=== PATIENT | female | born 1935 | race Caucasian/White ===

== ENCOUNTER 2022-01-16 13:59 | Outpatient (CLI) | payer MEDICARE, SELFPAY ==
--- NOTE | ~2022-01-16 | XR_ITS ---
XR hip RT 2V w AP pelvis DATE: 01/16/2022 14:21 INDICATION: Right hip pain TECHNIQUE: AP pelvis. AP and lateral views of right hip. COMPARISON: 03/05/2018 MRI right hip 01/28/2018 pelvis and right hip FINDINGS: Again noted is extensive calcification of the abdominal aorta, iliac and femoral arteries. Osteopenia. Again noted is levoscoliosis and degenerative disc disease of the lumbar spine. The pubic symphysis and sacroiliac joints are intact. No pelvic fracture or bone destruction is evident. Hip joint spaces are symmetric and relatively preserved. There is mild osteophytic spurring at the ri ght hip. No right hip fracture or dislocation, avascular necrosis or bone destruction is detected. IMPRESSION: Mild right hip osteoarthritis Osteopenia. Reviewed, dictated and finalized at location A.
== END 2022-01-16 14:00 | disposition home or self-care (01) ==
PROVIDERS: PCP Family Medicine; Visit Provider Physician Assistant Medical
DX: M25.551 Pain in right hip (principal); M16.11 Unilateral primary osteoarthritis, right hip; M85.89 Other specified disorders of bone density and structure, multiple sites
CPT/HCPCS: 73502

== ENCOUNTER → 2022-11-22 14:02 | Outpatient (CLI) | payer MEDICARE, SELFPAY ==
--- NOTE | ~2022-11-22 | XR_ITS ---
XR shoulder LT min 2V DATE: 11/22/2022 14:29 INDICATION: Pain, limited range of motion. No injury. TECHNIQUE: 4 views of left shoulder COMPARISON: 03/01/2018 left shoulder FINDINGS: There is osteopenia. Bilateral cervical and upper thoracic pedicle screws and rods There is levoscoliosis of the upper thoracic spine. No fracture or dislocation, periosteal reaction or bone destruction is noted at the left shoulder. Th ere is mild degenerative change at the zak clavicular and glenohumeral joints. IMPRESSION: Status post posterior cervicothoracic spinal surgical fusion Osteopenia No fracture or dislocation of the left shoulder Mild degenerative change at the acromioclavicular and glenohumeral joints Reviewed, dictated and finalized at location L.
== END ==
PROVIDERS: PCP Family Medicine; Visit Provider Family Medicine
DX: M85.812 Other specified disorders of bone density and structure, left shoulder (principal); M19.012 Primary osteoarthritis, left shoulder
CPT/HCPCS: 73030

== ENCOUNTER 2023-12-02 16:51 | Emergency (ER) | payer MEDICARE, SELFPAY ==
[2023-12-02 17:29] VITALS: BP 127/54; PULSE 92; RESP 20; TEMP 36.6; O2SAT 95
--- NOTE | 2023-12-02 21:21 | ED.GENADULT ---
HPI - General Adult General Chief complaint: Skin/Abscess/Foreign Body Stated complaint: itching Time Seen by Provider: 12/02/23 19:58 History of Present Illness HPI narrative: 87-year-old female present to the emergency department for evaluation for allergic reaction. Patient did restart taking her metformin and a sleep medication called [facility] sleep. Patient has taken the metformin previously and has had no issues with allergic reactions. Patient has never taken the sleep aid before. Patient started both these medications approximately 1 week ago. Patient did follow-up with primary care physician was started on hydroxy which he states has not been helping with her symptoms. Patient presents the ED with multiple areas of excoriation secondary to her scratching the itching. Related Data Home Medications Medication Instructions Recorded Confirmed albuterol sulfate 90 mcg/actuation 2 puff inhalation Q4-6H PRN 06/15/19 11/25/23 aerosol inhaler (ProAir HFA) ferrous fumarate 325 mg (106 mg 325 mg PO DAILY 09/14/19 11/25/23 iron) tablet acetaminophen 500 mg tablet 500 mg PO Q6H 07/06/21 11/25/23 (Tylenol Extra Strength) biotin 1 mg tablet 1 mg PO DAILY 07/06/21 11/25/23 blood sugar diagnostic (OneTouch 07/06/21 11/25/23 Verio test strips) cinnamon bark 500 mg capsule 1,000 mg PO DAILY 07/06/21 11/25/23 (Cinnamon) garlic 1,000 mg capsule 1,000 mg PO DAILY 07/06/21 11/25/23 multivitamin 1 tablet PO DAILY 07/06/21 11/25/23 omega-3 fatty acids 500 mg capsule 500 mg PO DAILY 07/06/21 11/25/23 Allergies Allergy/AdvReac Type Severity Reaction Status Date / Time lorazepam Allergy Severe confusion, Verified 12/02/23 17:35 ams hydrocodone Allergy Unknown Nausea Verified 12/02/23 17:35 Opioids - Morphine Analogues Allergy Unknown Nausea Verified 12/02/23 17:35 Sulfa (Sulfonamide Allergy Unknown Rash Verified 12/02/23 17:35 Antibiotics) sulfanilamide Allergy Unknown Rash Verified 12/02/23 17:35 Review of Systems Review of Systems: All systems reviewed & are unremarkable except as noted in HPI and below PMFSH Past Medical History Medical History BMI 24.0-24.9, adult BMI 26.0-26.9,adult BMI 27.0-27.9,adult Degenerative joint disease of cervical and lumbar spine Insomnia Spinal fracture Tensor fascia suad syndrome Family History Family History Mother Hypertension Family history of elevated blood lipids Family history of diabetes mellitus in first degree relative Patient's mother is Diabetes mellitus Sibling Family history of elevated blood lipids Family history of malignant neoplasm of breast in first degree relative, Onset Age: 201 Family history of pulmonary embolism, Onset Age: 196 Patient's sister is Family history of mental disorder Family history of malignant neoplasm Family history of heart disease in male family member before age 55 Father Family history of coronary artery disease Patient's father is Acute myocardial infarction Other Cerebrovascular accident Depression Family history of cardiovascular disease Social History Social History Smoking status: Former smoker Second hand tobacco smoke exposure: No Alcohol intake: never Substance use: current Substance use type: marijuana Other substance usage details: edibles-for sleep Living arrangements: [facility] [place] Occupation/Education: retired Additional occupation/education comments: [employer] job placement. Gender identity (if verbalized by the patient): Female Exam Narrative: APPEARANCE: Well appearing, no pain, no distress, well-nourished. HEAD: normocephalic, atraumatic. EYES: PERRLA/EOMI, conjunctivae clear. NOSE: Normal no drainage EARS:TMS clear with good light reflex. THROAT
[2023-12-02] MEDS: predniSONE 20 MG TABLET 40 MG PO (21:30)
[2023-12-02] MEDS: diphenhydrAMINE HCl CAP 25 MG CAPSULE PO (21:30)
[2023-12-02 21:36] LABS: Glucose Point of Care 144 mg/dl (65-105)
[2023-12-02 21:40] VITALS: BP 130/80; PULSE 88; RESP 18; TEMP 36.8; O2SAT 99
== END 2023-12-02 21:44 | disposition home or self-care (01) ==
PROVIDERS: Emergency Provider Emergency Medicine; PCP Family Medicine
DX: L50.0 Allergic urticaria (principal); T45.0X5A Adverse effect of antiallergic and antiemetic drugs, initial encounter; E11.9 Type 2 diabetes mellitus without complications; M47.812 Spondylosis without myelopathy or radiculopathy, cervical region; M47.816 Spondylosis without myelopathy or radiculopathy, lumbar region; G47.00 Insomnia, unspecified; Z87.891 Personal history of nicotine dependence; Z79.84 Long term (current) use of oral hypoglycemic drugs
CPT/HCPCS: 82948; 99283; A9270; J7512

== ENCOUNTER 2023-12-08 21:50 | Emergency (ER) | payer MEDICARE, SELFPAY ==
[2023-12-08 21:50] VITALS: BP 152/63; PULSE 83; RESP 20; TEMP 36.9; O2SAT 96
[2023-12-08 21:58] LABS: Glucose Point of Care 333 mg/dl (65-105)
[2023-12-08] MEDS: SODIUM CHLORIDE 0.9% IV 1,000 ML 999 ML IV CONT (22:39)
[2023-12-08 22:44] VITALS: BP 138/52; PULSE 76; RESP 16; O2SAT 98
[2023-12-08 22:52] LABS: Basophils Percent Auto 0.3 % (0.2-1.2); Eosinophils Percent Auto 0.1 % (0-4.4); Hematocrit 37.2 % (37.0-47.0); Hemoglobin 12.4 g/dL (12.0-15.0); Immature Granulocyte Absolute 0.39 K/mm3 (0.00-0.031); Immature Granulocyte Percent A 2.7 % (0-0.5); Lymphocytes Absolute Auto 2.08 K/mm3 (0.9-3.2); Lymphocytes Percent Auto 14.2 % (18.3-44.2); Mean Corpuscular HGB Conc 33.3 g/dl (32-36); Mean Corpuscular Hemoglobin 30.8 pg (26-34); Mean Corpuscular Volume 92.5 fl (80-100); Mean Platelet Volume 9.4 fl (7.4-10.4); Monocytes Absolute Auto 0.9 K/mm3 (0.1-0.6); Monocytes Percent Auto 5.9 % (2.6-8.5); Neutrophils Absolute Auto 11.3 K/mm3 (1.3-6.7); Neutrophils Percent Auto 76.8 % (45.5-73.1); Platelet Count Result 296 k/mm3 (150-375); Red Blood Count 4.02 M/mm3 (4.2-5.4); Red Cell Distribution Width 13.4 % (11.5-14.5); White Blood Count 14.6 K/mm3 (4.5-10.0)
[2023-12-08 23:03] LABS: Alanine Aminotransferase 75 U/L (6-35); Albumin Level 4.5 g/dL (3.5-5.1); Alkaline Phosphatase 285 U/L (38-126); Anion Gap 15 mmol/L (4-12); Aspartate Amino Transferase 28 U/L (14-36); Bilirubin,Total 0.6 mg/dL (0.2-1.3); Blood Urea Nitrogen 47 mg/dL (7-17); Calcium 10.6 mg/dL (8.4-10.2); Carbon Dioxide 22 mmol/L (22-30); Chloride 97 mmol/L (98-107); Estimated CRCL calculation 26 ml/min; Estimated Glomerular Filt Rate 43; Glucose 291 mg/dL (65-110); Lipase 218 U/L (23-300); Magnesium 1.9 mg/dL (1.6-2.3); Potassium 5.4 mmol/L (3.4-5.0); Sodium 134 mmol/L (137-145)
[2023-12-08 23:06] LABS: Beta-Hydroxybutyrate/Acetoacetate 0.22 mmol/L (0.02-0.27)
[2023-12-08 23:07] LABS: Appearance Urine Clear (Clear); Bacteria Urine 4+ /hpf; Bilirubin Urine Negative (Negative); Blood Urine Negative (Negative); Color Urine Yellow (Yellow); Glucose Urine UA 3+ mg/dL (Negative); Ketones Urine Negative (Negative); Leukocyte Esterase Ur 1+ LEU/UL (Negative); Nitrate Urine Positive (Negative); Non Pathogenic Casts 0-2; Protein Urine Negative (Negative); RBC Urine 0-2 /hpf (0-2); Specific Grav Ur 1.026 (1.001-1.035); Squamous Epithelial Cell Urine None Seen /hpf (Few); Urobilinogen Urine 0.2 mg/dL (<2.0); pH Urine 5.5 (5.0-9.0)
[2023-12-08 23:10] LABS: Add Urine Microscopic? YES
[2023-12-09 00:03] LABS: Glucose Point of Care 219 mg/dl (65-105)
--- NOTE | 2023-12-09 00:15 | ED.GENADULT ---
HPI - General Adult General Chief complaint: Recheck/Abnormal Lab/Rx Stated complaint: increased blood sugar Time Seen by Provider: 12/08/23 22:03 History of Present Illness HPI narrative: Patient is a 7-year-old female presents emergency department with chief complaint of hyperglycemia. Patient reports he had allergic reaction the other day was started on prednisone and hydroxyzine the patient reports that today her blood sugars are running elevated patient also reports he has been drinking core smoothie in the morning for breakfast Related Data Home Medications Medication Instructions Recorded Confirmed albuterol sulfate 90 mcg/actuation 2 puff inhalation Q4-6H PRN 06/15/19 12/08/23 aerosol inhaler (ProAir HFA) Shortness Of Breath ferrous fumarate 325 mg (106 mg 325 mg PO DAILY 09/14/19 12/08/23 iron) tablet acetaminophen 500 mg tablet 500 mg PO Q6H 07/06/21 12/08/23 (Tylenol Extra Strength) biotin 1 mg tablet 1 mg PO DAILY 07/06/21 11/25/23 blood sugar diagnostic (OneTouch 07/06/21 12/08/23 Verio test strips) cinnamon bark 500 mg capsule 1,000 mg PO DAILY 07/06/21 11/25/23 (Cinnamon) garlic 1,000 mg capsule 1,000 mg PO DAILY 07/06/21 11/25/23 multivitamin 1 tablet PO DAILY 07/06/21 11/25/23 omega-3 fatty acids 500 mg capsule 500 mg PO DAILY 07/06/21 11/25/23 Allergies Allergy/AdvReac Type Severity Reaction Status Date / Time lorazepam Allergy Severe confusion, Verified 12/08/23 22:06 ams hydrocodone Allergy Unknown Nausea Verified 12/08/23 22:06 Opioids - Morphine Analogues Allergy Unknown Nausea Verified 12/08/23 22:06 Sulfa (Sulfonamide Allergy Unknown Rash Verified 12/08/23 22:06 Antibiotics) sulfanilamide Allergy Unknown Rash Verified 12/08/23 22:06 Review of Systems Review of Systems: A 10 system review of systems was completed on the patient and is negative except for what is stated in the HPI. Nursing and ancillary documentation was reviewed. [facility] Past Medical History Medical History BMI 24.0-24.9, adult BMI 26.0-26.9,adult BMI 27.0-27.9,adult Degenerative joint disease of cervical and lumbar spine Insomnia Spinal fracture Tensor fascia suad syndrome Family History Family History Mother Hypertension Family history of elevated blood lipids Family history of diabetes mellitus in first degree relative Patient's mother is Diabetes mellitus Sibling Family history of elevated blood lipids Family history of malignant neoplasm of breast in first degree relative, Onset Age: 201 Family history of pulmonary embolism, Onset Age: 196 Patient's sister is Family history of mental disorder Family history of malignant neoplasm Family history of heart disease in male family member before age 55 Father Family history of coronary artery disease Patient's father is Acute myocardial infarction Other Cerebrovascular accident Depression Family history of cardiovascular disease Social History Social History Smoking status: Former smoker Second hand tobacco smoke exposure: No Alcohol intake: never Substance use: current Substance use type: marijuana Other substance usage details: edibles-for sleep [place] Occupation/Education: retired Additional occupation/education comments: [employer] job placement. Gender identity (if verbalized by the patient): Female Exam Narrative: GENERAL: Well-appearing, well-nourished, and in no acute distress. HEAD: Normocephalic, atraumatic. EYES: PERRLA and EOMI. ENT: Nares clear, no rhinorrhea or epistaxis. Mucous membranes moist. NECK: Supple. CHEST: Clear to auscultation. No respiratory distress. HEART: Regular rate and rhythm. No murmur heard. Normal perip
[2023-12-09] MEDS: CEPHALEXIN 500 MG CAPSULE PO (00:35)
[2023-12-09 00:44] VITALS: BP 165/60; PULSE 78; RESP 15; O2SAT 98
== END 2023-12-09 00:46 ==
PROVIDERS: Emergency Provider Emergency Medicine; PCP Family Medicine
DX: N39.0 Urinary tract infection, site not specified (principal); E11.65 Type 2 diabetes mellitus with hyperglycemia; M47.816 Spondylosis without myelopathy or radiculopathy, lumbar region; M47.812 Spondylosis without myelopathy or radiculopathy, cervical region; Z87.891 Personal history of nicotine dependence; Z79.84 Long term (current) use of oral hypoglycemic drugs; Z79.899 Other long term (current) drug therapy
CPT/HCPCS: 36415; 80053; 81001; 82010; 82948; 83690; 83735; 85025; 87077; 87086; 87088; 87186; 96360; 96361; 99283; A9270; J7030

== ENCOUNTER 2024-04-09 14:17 | Outpatient (CLI) | payer MEDICARE, SELFPAY ==
--- NOTE | ~2024-04-09 | CT_ITS ---
EXAMINATION: CT shoulder LT wo con DATE: 04/09/2024 14:41 INDICATION: Fracture of unspecified part of scapula, left. TECHNIQUE: Computed tomography (CT) of the left shoulder was performed without intravenous contrast. Automated exposure control and iterative reconstruction technique were employed. The dose-length prod uct was 113.07 mGy-cm. COMPARISON: Left shoulder radiographs 11/22/2022 FINDINGS: Bone alignment is normal. No fracture. There is mild osteoarthritis of glenohumeral joint a nd moderate osteoarthritis of acromioclavicular joint. Subacromial spurring is noted. There is narrow ing of the subacromial space, consistent with rotator cuff tear. There are changes of posterior fusio n procedure in cervical thoracic spine. IMPRESSION: 1. No fracture. 2. Polyarticular osteoarthritis. 3. Rotator cuff tear. Reviewed, dictated and finalized at location A.
== END 2024-04-09 14:18 | disposition home or self-care (01) ==
PROVIDERS: PCP Family Medicine; Visit Provider Nurse Practitioner Family
DX: M19.012 Primary osteoarthritis, left shoulder (principal); M75.102 Unspecified rotator cuff tear or rupture of left shoulder, not specified as traumatic
CPT/HCPCS: 73200

== ENCOUNTER 2024-06-16 09:07 | Outpatient (CLI) | payer MEDICARE, SELFPAY ==
--- NOTE | ~2024-06-16 | US_ITS ---
COMPLETE ABDOMINAL ULTRASOUND Ordering provider: MANA Melton History: . R74.8 - Abnormal levels of other serum enzymes . Comparison: None. FINDINGS: LIVER: Normal size and echotexture. No focal hepatic lesions or perihepatic fluid collections are carlos ntified. Portal vein flow is normal. GALLBLADDER: Cholelithiasis. No evidence for sludge, gallbladder wall thickening or pericholecystic f luid collections. The wall measures 2.8 mm. A negative sonographic Kelsey's sign was noted. BILIARY DUCTS:Common bile duct measures 10 mm in diameter. Stones are seen in the CBD. PANCREAS: Normal echotexture and size. SPLEEN: Normal size, echotexture and contour and measures 8.2 cm in length. KIDNEYS: Right measures 9.2x 5.7x 4.8 cm in length and the left 8.1x 4x 4.2 cm in length. There is no evidence for hydronephrosis, solid renal mass, renal calculi or perinephric fluid collections. Cyst is seen in the left kidney measuring 1.8 x 1.6 x 1.7 cm. UPPER ABDOMINAL AORTA: Normal in caliber. Proximal aorta measures 1.2 cm. IVC: Patent. FREE FLUID: None. IMPRESSION: Cholelithiasis. Dilated CBD with stones. Left renal cyst. Reviewed, dictated and finalized at location A. [employer] WORK[employer]
== END 2024-06-16 09:08 | disposition home or self-care (01) ==
PROVIDERS: PCP Family Medicine; Visit Provider Nurse Practitioner Family
DX: K80.20 Calculus of gallbladder without cholecystitis without obstruction (principal); K83.8 Other specified diseases of biliary tract; K80.50 Calculus of bile duct without cholangitis or cholecystitis without obstruction; N28.1 Cyst of kidney, acquired; R74.8 Abnormal levels of other serum enzymes; R63.4 Abnormal weight loss
CPT/HCPCS: 76700

== ENCOUNTER 2024-09-10 00:20 | Day surgery (SDC) | payer MEDICARE, SELFPAY ==
[2024-09-08 13:43] VITALS: BMI 17.6
[2024-09-10] VITALS (8 sets, daily range): BP systolic 135–191; BP diastolic 43–65; PULSE 61–87; RESP 16–26; TEMP 36.5–36.8; O2SAT 96–100
--- NOTE | ~2024-09-10 | XR_ITS ---
INTRAOPERATIVE FLUOROSCOPY: CLINICAL HISTORY: 88 years old Female; [place] PROCEDURE COMMENTS: Limited intraoperative fluoroscopy of the abdomen was performed. CUMULATIVE DOSE: 19.5 mGy FLUOROSCOPY TIME: 184 seconds FINDINGS/IMPRESSION: Please refer to operative note for further details. Reviewed, dictated and finalized at location A. [employer]
--- OUTSIDE RECORDS SUMMARY | 2024-09-10 00:24 | XMS_ITS | Patient Health Summary ---
Author Organization [facility] [employer] Address [address] [place] [address] Care Team Providers Care Director College Name Role Phone Parker Gerardo Primary Care Provider [phone] Note from [facility],non-owned Affiliates and Associated Physician Practices is amultiple site organization consisting of ambulatory clinics and hospital sitesin [place], [place], [place] and [place]. This disclosure is being madepursuant to the Care Everywhere program and may not contain all information available regarding this patient. Last updated 18.[facility] [employer] Social History Tobacco Use Types Packs/Day Years Used Date Smoking Tobacco: Never Assessed Sex and Gender Information Value Date Recorded Sex Assigned at Not on file Gender Identity Not on file Sexual Orientation Not on file Last Filed Vital Signs Vital Sign Reading Time Taken Comments Blood Pressure 150/60 11/06/2017 12:57 PM CDT Pulse - - Temperature - - Respiratory Rate - - Oxygen Saturation - - Inhaled Oxygen Concentration - - Weight 59.6 kg (131 lb 6.4 oz) 11/06/2017 12:57 PM CDT Height 160 cm (5' 3 ) 11/06/2017 12:57 PM CDT Body Mass Index 23.28 11/06/2017 12:57 PM CDT Procedures * GROSS + MICRO EXAM(Performed 09/12/2000) Results * GROSS + MICRO EXAM (09/12/2000 9:41 AM J2EE ANDROID DEVELOPER) Result CASE NUMBER [id number] Comment: ORDERING PHYSICIAN NATALIIA YEE SPECIMEN TYPE Endometrial Curetti Date 09/12/2000 Physician sony Gross Description 2 specimens are received in formalin, labeled with the patients name. 1-the specimen is identified as `endometrial curettings' and consists of fragments of pink tellez bloody soft tissue fragments measuring in aggregate .5 x .5 x .4 cm. The entire specimen is dotted with hematoxylin submitted in cassette A. 2-the specimen is identified as `cornual lesion' and consists of two small fragments of tellez soft tissue fragments each measuring approximately .2 cm in greatest diameter. The entire specimen is submitted in B. AE/c Microscopic Exam Sections of the specimen labeled endometrial curettings shows multiple strips of benign endometrial and endocervical epithelium. Scattered stromal elements are present in the sections. A small focus of squamous metaplasia is also present. Tissue is insufficient for phase evaluation of the endometrium, but scant tissue such as this is often seen in atrophic endometria. Clinical cporrelation is recommended. No evidence of malignancy is present. Sections of the cornual lesion shows a fragment of polypoid endometrial stromal tissue containing a few atrophic cystically dilated glands consistent with cystic atrophy. No evidence of malignancy is noted in the sections. Ae/ AB Diagnosis I. Endometrial curettings A. Scanty benign endometrial tissue (see microscopic) B. Insufficient for phase evaluation of endometrium II. Cornual lesion, biopsy A. Cystic atrophy B. No evidence of malignancy. Ae/ AB [employer] [facility] [place] Pathologist Felix Hernandez M.D. Snomed. 09/13/2000 1243 <4> CPT code 53128/58812 x2 MISCELLANEOUS SAMPLES / Unknown 09/12/2000 9:41 AM J2EE ANDROID DEVELOPER 09/12/2000 9:41 AM J2EE ANDROID DEVELOPER Historical Provider LAB - PATHOLOGY/C YTOLOGY ORDERABLES Care Teams Director College Relationship Specialty Start Date End Date Parker Gerardo DO PCP - General 01/09/18
--- OUTSIDE RECORDS SUMMARY | 2024-09-10 00:24 | XMS_ITS | Clinical Summary ---
Author Organization [facility] Address [address] [place] [address] Care Team Providers Care Worm Picker Name Role Phone Pasha Barlow MD Primary Care Provider [phone] Allergies Active Allergy Reactions Criticality Noted Date Comments Hydrocodone-Acetaminophen Unknown 12/07/2018 Opioids - Morphine Analogues Unknown 019 Sulfa (Sulfonamide Antibiotics) Medications simvastatin (ZOCOR) 40 mg tablet Take 40 mg by mouth nightly Active metoprolol pugh-hydrochlorot hiaz 25-12.5 mg tablet extended release 24 hr Take by mouth Ac tive busPIRone (BUSPAR) 5 mg tabletIndicatio ns:Generalized Anxiety Disorder Take 5 mg by mouth 3 (three) times a day Active vit D3-vit T-bpxmrbgkj-him s [id number] ojxo-tsg-dg-mg tablet Take by mouth Active fluticasone propion-salmete rol (ADVAIR DISKUS) 100-50 mcg/dose diskus inhaler Inhale 1 puff 2 (two) times a day Rinse mouth with water after use. Do not swallow. Active acetaminophen 500 mg capsuleIndicati ons:Pain Take 2 capsules (1,000 mg total) by mouth every 6 (six) hours 30 tablet 9 Active cholecalciferol (VITAMIN D-3) 400 unit/mL drops Take 2.5 mL (1,000 Units total) by mouth daily 50 mL 9 Active ONETOUCH VERIO strip USE TO TEST BLOOD SUGARS 4 TIMES DAILY 3 9 Active traMADol (ULTRAM) 50 mg tabletIndicatio ns:Pain Take 1/2 tablet BID PRN 60 tablet 9 Active PROAIR HFA 90 mcg/actuation inhaler INHALE 2 PUFFS Q 4 TO 6 HOURS PRN 0 9 Active tiZANidine (ZANAFLEX) 2 mg tablet TK 1 T PO BID PRN AND 1 T AT BEDTIME 5 9 Active traZODone (DESYREL) 150 mg tablet 9 Active metoprolol XL (TOPROL-XL) 50 mg 24 hr tablet TK 1 T PO QD 3 9 Active metFORMIN XR (GLUCOPHAGE XR) 500 mg 24 hr tablet TK 2 TS PO QD WITH THE EVENING MEAL 5 9 Active lisinopril (PRINIVIL,ZESTR IL) 5 mg tablet 9 Active ferrous sulfate 325 mg (65 mg of elemental iron) tablet TK 1 T PO QD 5 9 Active sertraline (ZOLOFT) 100 mg tablet TK 1 T PO QD 9 Active sertraline (ZOLOFT) 50 mg tablet TK 1 T PO D [address] (CYMBALTA) 60 mg capsule TK ONE C PO QD 0 Active PREVIDENT 5000 DRY MOUTH 1.1 % gel USE D UTD 9 Active escitalopram (LEXAPRO) 10 mg tablet TK 1 T PO D 0 Active hydrocortisone 2.5 % cream Apply topically 2 (two) times a day 8 Active Active Problems Problem Noted Date Diagnosed Date Acute pain 12/12/2018 Acute pulmonary insufficiency 12/12/2018 Closed nondisplaced fracture of sixth cervical vertebra ([facility]) 12/08/2018 Closed fracture of spinous p rocess of cervical vertebra ([facility]) 12/08/2018 Closed fracture of spinous p rocess of thoracic vertebra ([facility]) 12/08/2018 Hypertension 12/08/2018 Diabetes 12/08/2018 COPD (chronic obstructive pulmonary disease) 01/2019 Hyponatremia 12/08/2018 Closed fracture of cervical vertebra ([facility]) 0 12/07/2018 Overview (12/08/2018): Added automatically from request for surgery [id number] Sensorineural hearing loss (SNHL) of both ears 1 08/18/2011 Trigeminal neuralgia 07/17/2010 Impacted cerumen 03/30/2010 Immunizations Name Administration Dates Next Due Influenza, Trivalent, High D ose, Split, Preservative Free, Intramuscular 05/14/2018,04/18/2017,04/25/2016,05/02,04/15/2013 Pneumococcal Conjugate PCV 13 04/25/2016 Pneumococcal Polysaccharide PPV23 05/27/2017 Tdap 02/05/2018 ZOSTER Recombinant 08/28/2019,06/29/2019 Surgical History Surgery Date Site/Laterality Comments CYSTOCELE REPAIR ROTATOR CUFF REPAIR 08/05/1999 - 08/04/2000 Right POLYPECTOMY laryngeal KNEE SURGERY 08/05/1999 - 08/04/2000 Right CRANIECTOMY SUBOCCIPITAL FOR EXPLORATION / DECOMPRESSION CRANIAL NERVES 04/05/2010 - 05/04/2010 trigeminal neuralgia Medical History Medical History Date Comments COPD (chronic obstructive pulmonary disease) (HC C) Diabetes mellitus (HCC) Hypertension IBS (irritable bowel syndrome) Anxiety Hard to intubate 04/2010 Trigeminal neuralgia PONV (postoperative nausea and vomiting) Hyperlipidemia Social History Tobacco Use Types Packs/Day Years Used Date Smoking Tobacco: Every Day Smokeless Tobacco: Never Tobacco Cessation:Ready to Q uit: No; Counseling Given: Yes Comments No Sex and Gender Information Value Date Recorded Sex Assigned at Not on file Legal Sex Female 7:55 PM CELL LEAD Gender Identity Not on file Sexual Orientation Not on file Obstetrics History Last Filed Vital Signs Vital Sign Reading Time Taken Comments Blood Pressure 146/73 07/04/2020 12:45 PM CELL LEAD Pulse 87 07/04/2020 12:45 PM CELL LEAD Temperature 36.4 C (97.5 F) 12/19/2018 2:54 PM CDT Respiratory Rate 18 12/19/2018 2:54 PM CDT Oxygen Saturation 96% 12/19/2018 2:54 PM CDT Inhaled Oxygen Concentration - - Weight 67.6 kg (149 lb) 07/04/2020 12:45 PM CELL LEAD Height 160 cm (5' 3 ) 07/04/2020 12:45 PM CELL LEAD Body Mass Index 26.39 07/04/2020 12:45 PM CELL LEAD Plan of Treatment Not on file Medical Devices Implanted Type Area Field Contractor Device Identifier Shelf Expiration Date Model / Serial / Lot Gel 10cc Demineralized Bone Matrix - [id number] Implanted:Qty: 1 on 12/12/2018 by Turner Victoria MD at [facility] N/A: Spine Cervical [employer] 05/17/2021 [id number] / / [id number] [employer] [id number] Oasys Occipito Cervico Thoracic Jose Spinal - [id number] Implanted:Qty: 12 on 12/12/2018 by Turner Victoria MD at [facility] N/A: Spine Cervical [employer] [id number] / / [employer] [id number] Oasys 3.5mm 350mm Occipitocervicothoracic Spine Large Jamie Spinal - [id number] Implanted:Qty: 1 on 12/12/2018 by Turner Victoria MD at [facility] N/A: Spine Cervical [employer] [id number] / / Gel 10cc Demineralized Bone Matrix - [id number] Implanted:Qty: 1 on 12/12/2018 by Turner Victoria MD at [facility] N/A: Spine Cervical Ryan Spine 05/17/2021 [id number] / / [id number] [employer] [id number] - [id number] - [id number] Implanted:Qty: 1 on 12/12/2018 by Turner Victoria MD at [facility] N/A: Spine Cervical [employer] 10/07/2023 [id number] / Spinal Graft Tech [id number] Magnifuse 5x1cm Spine Cervical Posterior Graft Bone Demineralized - [id number] - [id number] Implanted:Qty: 1 on 12/12/2018 by Turner Victoria MD at [facility] N/A: Spine Cervical Spinal Graft Tech 06/08/2020 [id number] / [id number] / Spinal Graft Tech [id number] Magnifuse 10x1cm Graft Bone Demineralized Bone Matrix - [id number] - [id number] Implanted:Qty: 1 on 12/12/2018 by Turner Victoria MD at [facility] N/A: Spine Cervical Spinal Graft Tech 10/01/2020 [id number] / [id number] / [employer]ine [id number] Oasys 3.5mm 14mm Bias Angle Polyaxial Spine - [id number] Implanted:Qty: 4 on 12/12/2018 by Turner Victoria MD at [facility] N/A: Spine Cervical [employer] [id number] / / [employer]ley Spine [id number] Oasys 3.5mm 16mm Bias Angle Polyaxial Spine - [id number] Implanted:Qty: 2 on 12/12/2018 by Turner Victoria MD at [facility] N/A: Spine Cervical [employer] [id number] / / Oakley Spine [id number] Oasys 4mm 28mm Bias Angle Polyaxial Spine Occipitocervicothoracic - [id number] Implanted:Qty: 2 on 12/12/2018 by Turner Victoria MD at [facility] N/A: Spine Cervical [employer] [id number] / / Ryan Spine [id number] Oasys 3.5mm 20mm Bias Angle Polyaxial Spine - [id number] Implanted:Qty: 4 on 12/12/2018 by Turner Victoria MD at [facility] N/A: Spine Cervical Ryan [employer]ine [id number] / / Insurance MEDICARE SOLUTIONS MEDICARE SOLUTIONS Advance Directives For more information, please contact: [phone] * Full Code (Latest Code Status on File) Date Activated Date Inactivated Comments 12/08/2018 1:51 AM 12/19/2018 9:41 PM Care Teams Worm Picker Relationship Specialty Start Date End Date Pasha Barlow MD PCP - General Family Medicine 01/26/19
--- OUTSIDE RECORDS SUMMARY | 2024-09-10 00:24 | XMS_ITS | Continuity of Care Document ---
Author Organization [facility] Address [address] [place] [address] Phone Care Team Providers Care Vice Squad Police Officer Name Role Phone Marie Linn MD Unavailable Unavailable Allergies, Adverse Reactions, Alerts Substance Reaction Status Criticality Sulfa (Sulfonamide Antibiotics) WELDING SYSTEMS AND EQUIPMENT REPAIRER Active No Information DIPHENHYDRAMINE HCL Other Active No Infor mation Medications Medication Instructions Dosage Effective Dates (start - stop) Status Comments BUSPAR 5MG TABS 1 TID - Active MAXZIDE-25 MG TABLET .5 QAM - Activ e SIMVASTATIN 40MG TABS 1 QHS - Acti ve TRAZODONE 50 MG TABLET 1 QHS - Act ellyn PREMPRO 0.625-2.5 MG TABLET 1 QD-daily - Active ADULT LOW STRENGTH 81MG TABS 1 QD-daily - Active CITRUCEL 500MG TABS 1 QD - Active CALCIUM 500 W/VITAMIN D 500MG- 1 QD - Active GLUCOSAMINE/CHONDROITIN 500-40 1 QD - Active MULTIVITAMIN AND MINERALS TAB 1 QD - Active Advance Directives Directive Yes / No Effective Date File Name No Information Encounters Encounter Description Practice Location Reason(s) For Visit Diagnoses Date Provider Providers Copied on Encounter [facility], [address], [place], [place], [address] , [place] tel: [phone] [facility] No Information 1 Temitope Salazar. [address] [address], [place], [place], [address], [place]. tel:[phone] [facility], [address], [place], [place], [address] , [place] tel: [phone] Conversion Department No Information 1 Conversion Doctor. [address] [place] [address], [address], [place]. [facility], [address], [place], [place], [address] , [place] tel: [phone] [facility] ACUTE SINUSITIS NOS 9 Temitopephani Salazar. [address] [place] [address], [place] [address], [place], [place], [address], [place]. tel:[phone] [facility], [address], [place], [place], [address] , [place] tel: [phone] [facility] TOBACCO USE DISORDERJOINT PAIN-L/LEGBENIGN HYPERTENSIONMIXED HYPERLIPIDEMIA 9 Temitopephani Salazar. [address] [place] [address], [place], [place], [address], [place]. tel: [phone] [facility], [address], [place], [address] , [place] tel: [phone] [facility] LONG-TERM USE MEDS NEC 9 Conversion Doctor. [address] [place] [address], [place], [address], [place]. [facility], [address], [place], [place], [address] , [place] tel: [phone] [facility] CHR KIDNEY DIS STAGE IIIURGE INCONTINENCEBEN HY KID W CR KID I-IV 4200 8 Temitopephani Salazar. [address] [place] [address], [place] [address], [place], [place], [address], [place]. tel: [phone] [facility], [address], [place], [place], [address] , [place] tel: [phone] [facility] VACCIN FOR INFLUENZA 0200 7 Temitopephani Salazar. [address] [place] [address], [place] [address], [place], [place], [address], [place]. tel:[phone] [facility], [address], [place], [address] , [place] tel:[phone] [facility] PRSNL HST COLONIC POLYPS Apr-0 3-200 7 Temitope Marie. [address] [place] [address], [address], [place], [place], [address], [place]. tel:[phone] [facility], [address], [place], [place], [address] , [place] tel: [phone] [facility] TRIGEMINAL NEURALGIAALLERGIC RHINITIS NOS Oct-2 4-200 6 Temitope Marie. [address] [place] [address], [address], [place], [place], [address], [place]. tel:[phone] [facility], [address], [place], [place], [address] , [place] tel: [phone] [facility] PURE HYPERCHOLESTEROLE M Mar-0 2-200 6 Temitope Marie. [address] [place] [address], [address], [place], [place], [address], [place]. tel:[phone] [facility], [address], [place], [place], [address] , [place] tel: [phone] [facility] LUMBAGO Dec-2 3-200 5 Temitope Marie. [address] [place] [address], [address], [place], [place], [address], [place]. tel:[phone] [facility], [address], [place], [place], [address] , [place] tel: [phone] [facility] ACUTE URI NOS Oct-1 3-200 5 Moose Sherita. [address] [facility], [place], [place], [address]. tel:[phone] [facility], [address], [place], [place], [address] , [place] tel: [phone] [facility] SKIN SENSATION DISTURB Nov-0 9-200 4 Temitope Marie. [address] [place] [address], [address], [place], [place], [address], [place]. tel:[phone] [facility], [address], [place], [place], [address] , [place] tel: [phone] [facility] SYMPT FEM CLIMACT STATEESOPHAGEAL REFLUXANXIETY STATE NOS 2 4 Conversion Doctor. [address] [facility], [place], [address], [place]. [facility], [address], [place], [address] , [place] tel: [phone] [facility] No Information 4 Temitope Salazar. [address] [place] [address], [place] [address], [place], [address], [place]. tel:[phone] [facility], [address], [place], [address] , [place] tel: [phone] [facility] ACUTE BRONCHITIS 4 Moose Sherita. [address] [facility], [place], [place], [address]. tel:[phone] [facility], [address], [place], [place], [address] , [place] tel: [phone] [facility] DEPRESSIVE DISORDER NECANAL OR RECTAL PAIN 8 4 Temitope Salazar. [address] [place] [address], [place] [address], [place], [address], [place]. tel:[phone] [facility], [address], [place], [place], [address] , [place] tel: [phone] [facility] VOICE/RESONANCE DIS NEC 3 1 Temitope Salazar. [address] [place] [address], [place] [address], [place], [place], [address], [place]. tel:[phone] [facility], [address], [place], [place], [address] , [place] tel: [phone] [facility] STOMACH FUNCTION DIS NEC 6200 1 Temitope Salazar. [address] [place] [address], [place] [address], [place], [address], [place]. tel:[phone] [facility], [address], [place], [address] , [place] tel: [phone] [facility] SCREEN MAL NEOP-RECTUM May- 0-200 0 Temitope Marie. [address] [place] [address], [place] [address], [place], [place], [address], . tel:[phone] [facility], [address], [place], [place], [address] , tel: [phone] [facility] CERVICALGIAJOINT PAIN-SHLDER Mar- 9-200 0 Temitope Marie. [address] [place] [address], [facility] [address], [place], [place], [address], . tel:[phone] [facility], [address], [place], [place], [address] , tel: [phone] [facility] VACCINATION FOR TD-DT 3-200 0 Temitope Marie. [address] [place] [address], [place] [address], [place], [place], [address], . tel:[phone] [facility], [address], [place], [place], [address] , tel: [phone] [facility] DUODENAL ULCER NOSSUPERFIC PHLEBITIS-LEG 9-199 9 Temitope Marie. [address] [place] [address], [place] [address], [place], [place], [address], . tel:[phone] Family History Family Member Type Diagnosis Age At Onset No Information Immunizations Vaccine Date Status Comments 88456 - Influenza administered Source: So urce Unspecified 13786 - TD administered Source: Source Unspecified Payers Payer name Insurance type Covered constitution party ID Authoriza tion(s) No Information Social History Type Description Quantity Date Captured Comments Alcohol Use Details Unknown Caffeine Use Details Unknown Tobacco Use Status No Information Smoking Status No Information Sex Female Chief Complaint And Reason For Visit No Information Reason For Referral Reason For Referral No Information History Of Present Illness Encounter Date Complaint History Of Prese nt Illness No Information Functional Status Date Functional Assessmen t No Information Instructions Date Instruction Additional Infor mation No Information Assessments Type Assessment Date No Information Patient Care Teams Name Effective Dates (start - stop) Status Members No Information
--- OUTSIDE RECORDS SUMMARY | 2024-09-10 00:24 | XMS_ITS | Referral Summary ---
Author Organization [facility] al Address [address] [place] [address] Care Team Providers Care Rn Hyperbaric Name Role Phone Pasha Barlow MD Primary Care Provider [phone] Allergies Active Allergy Reactions Criticality Noted Date [...] (three) times a day Active vit D3-vit S-wydleauha-ryc s 107-126-27-370 habf-aqr-jp-mg tablet Take by mouth Active fluticasone propion-salmete [...] Closed nondisplaced fracture of sixth cervical vertebra ([facility]) 12/08/2018 Closed fracture of spinous p rocess of cervical vertebra ([facility]) 12/08/2018 Closed fracture of spinous p rocess of thoracic vertebra ([facility]) 12/08/2018 Hypertension 12/08/2018 Diabetes 12/08/2018 COPD (chronic obstructive pulmonary disease) 01/2019 Hyponatremia 12/08/2018 Closed fracture of cervical vertebra ([facility]) 0 12/07/2018 Overview (12/08/2018): Added automatically from request for surgery [id number] Sensorineural hearing loss (SNHL) of both ears 1 08/18/2011 Trigeminal neuralgia 07/17/2010 Impacted cerumen 03/30/2010 Immunizations Name Administration Dates Next Due Influenza, Trivalent, High D ose, Split, Preservative Free, Intramuscular 05/14/2018,04/18/2017,04/25/2016,05/02,04/15/2013 Pneumococcal Conjugate PCV 13 04/25/2016 Pneumococcal Polysaccharide PPV23 05/27/2017 Tdap 02/05/2018 ZOSTER Recombinant 08/28/2019,06/29/2019 Social History Tobacco Use Types Packs/Day Years Used Date Smoking Tobacco: Every Day Smokeless Tobacco: Never Tobacco Cessation:Ready to Q uit: No; Counseling Given: Yes Comments No Sex and Gender Information Value Date Recorded Sex Assigned at Not on file Legal Sex Female 7:55 PM PRINTING ASSISTANT Gender Identity Not on file Sexual Orientation Not on file Last Filed Vital Signs Vital Sign Reading Time Taken Comments Blood Pressure 146/73 07/04/2020 12:45 PM PRINTING ASSISTANT Pulse 87 07/04/2020 12:45 PM PRINTING ASSISTANT Temperature 36.4 C (97.5 F) 12/19/2018 2:54 PM CDT Respiratory Rate 18 12/19/2018 2:54 PM CDT Oxygen Saturation 96% 12/19/2018 2:54 PM CDT Inhaled Oxygen Concentration - - Weight 67.6 kg (149 lb) 07/04/2020 12:45 PM PRINTING ASSISTANT Height 160 cm (5' 3 ) 07/04/2020 12:45 PM PRINTING ASSISTANT Body Mass Index 26.39 07/04/2020 12:45 PM PRINTING ASSISTANT Plan of Treatment Not on file Medical Devices Implanted Type Area Venetian Blind Washer Device Identifier Shelf Expiration Date Model / Serial / Lot Gel 10cc Demineralized Bone Matrix - [id number] Implanted:Qty: 1 on 12/12/2018 by Turner Victoria MD at [facility] N/A: Spine Cervical [employer]itt [employer] 05/17/2021 [id number] / / [id number] Ryan Spine [id number] Oasys Occipito Cervico Thoracic Jose Spinal - [id number] Implanted:Qty: 12 on 12/12/2018 by Turner Victoria MD at [facility] N/A: Spine Cervical Ryan Spine [id number] / / Hewitt Spine [id number] Oasys 3.5mm 350mm Occipitocervicothoracic Spine Large Jamie Spinal - [id number] Implanted:Qty: 1 on 12/12/2018 by Turner Victoria MD at [facility] N/A: Spine Cervical Ryan Spine [id number] / / Gel 10cc Demineralized Bone Matrix - [id number] Implanted:Qty: 1 on 12/12/2018 by Turner Victoria MD at [facility] N/A: Spine Cervical Ryan Spine 05/17/2021 [id number] / / [id number] [employer] [id number] - [id number] - [id number] Implanted:Qty: 1 on 12/12/2018 by Turner Victoria MD at [facility] N/A: Spine Cervical [employer] 10/07/2023 [id number] / Spinal Graft Tech [id number] Magnifuse 5x1cm Spine Cervical Posterior Graft Bone Demineralized - [id number] - [id number] Implanted:Qty: 1 on 12/12/2018 by Turner Victoria MD at [facility] N/A: Spine Cervical Spinal Graft Tech 06/08/2020 [id number] / [id number] / Spinal Graft Tech [id number] Magnifuse 10x1cm Graft Bone Demineralized Bone Matrix - [id number] - [id number] Implanted:Qty: 1 on 12/12/2018 by Turner Victoria MD at [facility] N/A: Spine Cervical Spinal Graft Tech 10/01/2020 [id number] / [id number] / Ryan Spine [id number] Oasys 3.5mm 14mm Bias Angle Polyaxial Spine - [id number] Implanted:Qty: 4 on 12/12/2018 by Turner Victoria MD at [facility] N/A: Spine Cervical Ryan Spine [id number] / / [employer]ine [id number] Oasys 3.5mm 16mm Bias Angle Polyaxial Spine - [id number] Implanted:Qty: 2 on 12/12/2018 by Turner Victoria MD at [facility] N/A: Spine Cervical Ryan Spine [id number] / / [employer]itt [employer]ine [id number] Oasys 4mm 28mm Bias Angle Polyaxial Spine Occipitocervicothoracic - [id number] Implanted:Qty: 2 on 12/12/2018 by Turner Victoria MD at [facility] N/A: Spine Cervical [employer] [id number] / / Ryan Spine [id number] Oasys 3.5mm 20mm Bias Angle Polyaxial Spine - [id number] Implanted:Qty: 4 on 12/12/2018 by Turner Victoria MD at [facility] N/A: Spine Cervical [employer] [id number] / / Insurance MEDICARE SOLUTIONS MEDICARE SOLUTIONS Advance Directives For more information, please contact: [phone] * Full Code (Latest Code Status on File) Date Activated Date Inactivated Comments 12/08/2018 1:51 AM 12/19/2018 9:41 PM Care Teams Rn Hyperbaric Relationship Specialty Start Date End Date Pasha Barlow MD PCP - General Family Medicine 01/26/19
--- OUTSIDE RECORDS SUMMARY | 2024-09-10 00:24 | XMS_ITS | Continuity of Care Document ---
Author Organization [facility] Address [address] [place] [address] Phone Care Team Providers Care Open End Spinning Operator Name Role Phone Perry OD, Aston Unavailable Unavailable Procedures Procedure Date Office/outpatient Visit, Est Eye Exam & Treatment Cntct Lens Hydrophilic Toric Or Prism Ba llast [facility] Refraction Remove Foreign Body From Eye CL Replacement - Vistakon Disp W/BW Soft [facility] Eye Exam & Treatment Refraction No Charge Contact Lens Check CL Replacement - Vistakon Disp W/BW Soft [facility] Eye Exam, New Patient Refraction Advance Directives Directive Yes / No Effective Date File Name No Information Encounters Encounter Description Practice Location Reason(s) For Visit Diagnoses Date Provider Providers Copied on Encounter Office/outpat ient Visit, Est [facility], [address], [place], [place], [address], [place] tel:[phone] [facility] No Information 5-201 0 Perry OD Aston. [address] , [address], [place], [address], [place]. tel:[phone] [facility], [address], [place], [place], [address], [place] tel:[phone] [facility] No Information May-2 0-201 0 Perry OD Aston. [address] , [address], [place], [place], [facility], [place]. tel:[phone] [facility] Eye [facility], [address] [place] [address] [address], [place], [place], [address], tel:[phone] [facility] No Information Feb-1 0-200 9 Galdamez Esmer. [address] , [address], [place], [place], [facility], [place]. tel:[phone] [facility], [address] [place] [address] [address], [place], [place], [address], tel:[phone] [facility] No Information Azael-1 6-200 9 Perry OD Aston. [address] , [address], [place], [facility], [place]. tel:[phone] [facility], [address] [place] [address] [address], [place], [place], [address], tel:[phone] [facility] No Information Dec-0 4-200 8 Perry OD Aston. [address], [place], [facility], [place]. tel:[phone] [facility], [address] [place] [address] [address], [place], [place], [address], [place] tel:[phone] [facility] No Information Sep-2 5-200 7 Perry OD Aston. [address] , [address], [place], [facility], [place]. tel:[phone] [facility], [address] [place] [address] [address], [place], [place], [address], [place] tel:[phone] [facility] No Information Sep-1 8-200 7 Perry OD Aston. [address], [place], [facility], [place]. tel:[phone] Family History Family Member Type Diagnosis Age At Onset No Information Payers Payer name Insurance type Covered alliance party ID Authoriza tion(s) [place] [id number] [facility]ly [facility] [id number] Social History Type Description Quantity Date Captured Comments Sex Female Smoking Status No Information Chief Complaint And Reason For Visit No [...]
--- OUTSIDE RECORDS SUMMARY | 2024-09-10 00:24 | XMS_ITS | Referral Summary ---
Author Organization [facility] Address [address] [facility] [place] [address] Care Team Providers Care In Flight Refueling Manager Name Role Phone Parker Gerardo Primary Care Provider [phone] Source Comments [facility],non-owned Affiliates and Associated Physician Practices is amultiple site organization consisting of ambulatory clinics and hospital sitesin [place], [place] and [place]. This disclosure is being madepursuant to the Care Everywhere program and may not contain all information available regarding this patient. Last updated 18.[facility] [employer] Social History Tobacco Use Types Packs/Day Years [...] Mass Index 23.28 11/06/2017 12:57 PM CDT Plan of Treatment Not on file Care Teams In Flight Refueling Manager Relationship Specialty Start Date End Date Parker Gerardo DO PCP - General 01/09/18
--- OUTSIDE RECORDS SUMMARY | 2024-09-10 00:24 | XMS_ITS | Clinical Summary ---
Author Organization [facility] Address [address] [facility] [place] [address] Care Team Providers Care Plastics Production Machine Operator Name Role Phone Jairon Gerardodie Vinnie MOLINA Primary Care Provider [phone] Source Comments [facility],non-owned Affiliates and Associated Physician Practices is amultiple site organization consisting of ambulatory clinics and hospital sitesin [place], [place], [place] and [place]. This disclosure is being madepursuant to the Care Everywhere program and may not contain all information available regarding this patient. Last updated 18.[facility] Social History Tobacco Use Types Packs/Day Years [...] 11/06/2017 12:57 PM CDT Plan of Treatment Health Maintenance Due Date Last Done Comments BONE DENSITY TESTING 1936 DTAP/TDAP/TD VACCINES (1 - Tdap) 12/22/1955 PNEUMOCOCCAL VACCINE 50+ (1 of 1 - PCV) 1986 ZOSTER VACCINE (1 of 2) 1986 Respiratory Syncytial Virus (RSV) Vaccine Pt: or over 60 yrs (1 - 1-dose 75+ series) 12/22/2011 COVID-19 VACCINE (2023-2 5 season) 2024 INFLUENZA VACCINE (#1) 2024 DEPRESSION SCREENING 08/05/2024 MEDICARE AWV CALENDAR YEAR 2024 HEPATITIS B VACCINE Aged Out No longe r eligible based on patient's age to complete this topic HIB VACCINE Aged Out No longer eligi ble based on patient's age to complete this topic HPV VACCINE Aged Out No longer eligi ble based on patient's age to complete this topic MENINGOCOCCAL (Group B) VACCINE Aged Out No longer eligible based on patient's age to complete this topic MENINGOCOCCAL VACCINE Aged Out No jose emily eligible based on patient's age to complete this topic Care Teams Plastics Production Machine Operator Relationship Specialty Start Date End Date Parker Gerardo DO PCP - General 01/09/18
--- OUTSIDE RECORDS SUMMARY | 2024-09-10 00:24 | XMS_ITS | Encounter Summary ---
Author Organization [facility] Address [address] [place] [address] Care Team Providers Care It Project Coordinator Name Role Phone Parker Gerardo DO Primary Care Provider [phone] Pasha Barlow MD Primary Care Provider [phone] Encounter Details Date Type Department Care Team (Late st Contact Info) Description 12/19/2018 Documentation [facility] [address] [facility] 3rd [address] [place] [address] Krupa Elliott NP [address] [facility] [phone] [place] [address] Social History Tobacco Use Types Packs/Day Years Used Date Smoking Tobacco: Every Day Smokeless Tobacco: Never Comments No Sex and Gender Information Value Date Recorded Sex Assigned at Not on file Legal Sex Female 7:55 PM MATE SHIP Gender Identity Not on file Sexual Orientation Not on file documented as of this encounter Plan of Treatment Not on file documented as of this encounter Visit Diagnoses Not on filedocumented in this encounter Additional Health Concerns Infection Onset Date Last Indicated Resolved Time 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
--- NOTE | 2024-09-10 10:45 | P.PNAN_ITS ---
Anes - Initial Pre Proc Eval Procedure: Operation Date: 09/10/24 13:45 Proposed Procedures p Endoscopic Retro Cholangiopancreatogram - Tawanda Giordano MD Date/Time: 09/10/24 10:45 Surgeon: Tawanda Giordano MD Pre Op Diagnosis: Calculus of bile duct without cholangitis Patient Data Age: 88 Gender: F Height: 1.65 m Weight: 48 kg Allergies Allergy/AdvReac Type Severity Reaction Status Date / Time lorazepam Allergy Severe confusion, Verified 09/10/24 10:41 ams hydrocodone Allergy Unknown Nausea Verified 09/10/24 10:41 Opioids - Morphine Analogues Allergy Unknown Nausea Verified 09/10/24 10:41 Sulfa (Sulfonamide Allergy Unknown Rash Verified 09/10/24 10:41 Antibiotics) sulfanilamide Allergy Unknown Rash Verified 09/10/24 10:41 Home Medications ?Medication ?Instructions ?Recorded ?Confirmed ?Type albuterol sulfate 90 mcg/actuation 2 puff inhalation Q4-6H PRN 06/15/19 09/10/24 History aerosol inhaler (ProAir HFA) Shortness Of Breath ferrous fumarate 325 mg (106 mg 325 mg PO DAILY 09/14/19 09/10/24 History iron) [facility] 09/02/24 Rx Plus Lancet) acetaminophen 500 mg tablet 500 mg PO Q6H 07/06/21 09/10/24 History (Tylenol Extra Strength) biotin 1 mg tablet 1 mg PO DAILY 07/06/21 09/10/24 History blood sugar diagnostic ([facility] 07/06/21 09/02/24 History Verio test strips) cinnamon bark 500 mg capsule 1,000 mg PO DAILY 07/06/21 09/10/24 History (Cinnamon) garlic 1,000 mg capsule 1,000 mg PO DAILY 07/06/21 09/10/24 History multivitamin 1 tablet PO DAILY 07/06/21 09/10/24 History diclofenac sodium 3 % topical gel 1 applic topical BID #100 grams 01/29/22 09/08/24 Rx cholecalciferol (vitamin D3) 125 5,000 unit PO DAILY #90 tabs 08/16/22 09/10/24 Rx mcg (5,000 unit) tablet fluoride (sodium) 1.1 % dental 1 applic dental DAILY #100 mL 12/12/23 09/08/24 Rx paste (PreviDent 5000 Dry Mouth) lisinopril 5 mg tablet 5 mg PO DAILY #90 tabs 01/13/24 09/10/24 Rx hydroxyzine HCl 25 mg tablet 25 mg PO BID PRN itching #10 tabs 02/18/24 09/10/24 Rx flash glucose scanning reader #1 ea 02/24/24 09/02/24 Rx (FreeStyle Maryam 14 Day [place]) flash glucose sensor (FreeStyle #1 ea 03/10/24 09/02/24 Rx Maryam 14 Day Sensor kit) trazodone 150 mg tablet See Rx Instructions .Route 03/12/24 09/10/24 Rx .COMPLEX #90 tabs simvastatin 40 mg tablet See Rx Instructions .Route 04/09/24 09/10/24 Rx .COMPLEX #90 tabs fluticasone 100 mcg-salmeterol 50 1 ea inhalation Q12H #60 ea 04/14/24 09/10/24 Rx mcg/dose blistr powdr for inhalation (Wixela Inhub) empagliflozin 25 mg tablet 25 mg PO DAILY #90 tabs 05/25/24 09/10/24 Rx (Jardiance) sertraline 200 mg capsule 200 mg PO DAILY #90 caps 06/30/24 09/10/24 Rx vibegron 75 mg tablet (Gemtesa) 75 mg PO DAILY #90 tabs 07/21/24 09/10/24 Rx meloxicam 15 mg tablet 15 mg PO DAILY #90 tabs 08/06/24 09/10/24 Rx buspirone 5 mg tablet See Rx Instructions .Route 08/31/24 09/10/24 Rx .COMPLEX #90 tabs metformin 1,000 mg tablet See Rx Instructions .Route 08/31/24 09/10/24 Rx .COMPLEX #180 tabs prednisone 10 mg tablet 10 mg PO BID #20 tabs 09/02/24 09/10/24 Rx Patient hx anesthesia problems: other (hx of narrow airway at [place]) Family hx anesthesia problems: none Results Review: All pre-operative results and documents have been reviewed as part of the pre- operative evaluation. [facility] Past Medical History Medical History RUQ pain Nausea and vomiting Trigeminal neuralgia 2013 Diabetes Anxiety BMI 27.0-27.9,adult Degenerative joint disease of cervical and lumbar spine Spinal fracture BMI 24.0-24.9, adult Tensor fascia suad syndrome Insomnia BMI 26.0-26.9,adult Chronic obstructive pulmonary disease, unspecified Surgical History Surgical History History of back surgery 2019 Family History Family History Mother Hypertension Family history of elevated blood lipids Family history of diabetes mellitus in first degree relative Patient's mother is Diabetes mellitus Sibling Family history of elevated blood lipids Family history of malignant neoplasm of breast in first degree relative, Onset Age: 201 Family history of pulmonary embolism, Onset Age: 196 Patient's sister is Family history of mental disorder Family history of malignant neoplasm Family history of heart disease in male family member before age 55 Father Family history of coronary artery disease Patient's father is Acute myocardial infarction Other Cerebrovascular accident Depression Family history of cardiovascular disease Social History Social History Smoking packs per day: 1 Smoking cigarettes per day: 20.0 Smoking status: Former smoker Tobacco type: cigarettes Second hand tobacco smoke exposure: No Alcohol intake: never Substance use: current Substance use type: does not use Other substance usage details: edibles-for sleep Do You Feel Safe in your Home?: Yes Lack of Transportation: No Lack of Food: Never True Current Housing: I Have Housing Concerned About Future Housing: No Difficulty Paying Gas/Electric Bills: No Difficulty Paying for Meds: No Currently Unemployed: No Education: High School Diploma/GED Difficulty w/ Childcare or Family Care: No Living arrangements: with family Occupation/Education: retired Additional occupation/education comments: [employer] job placement. Gender identity (if verbalized by the patient): Female Spiritual care concerns: No Anes - Eval Final PreProcedure Day of Procedure 09/10/24 10:45 Patient weight: thin Heart: regular rate and rhythm Lungs: clear to auscultation Airway: Mallampati scale class III and special considerations poor opening and poor extension Neurological: alert and oriented Last oral intake: >/= 8 hours ASA classification: III Emergent: no Anesthetic plan: proceed Anesthesia type and monitoring: general ETT and standard monitoring Results Review: All pre-operative results and documents have been reviewed as part of the pre- operative evaluation. Informed Consent: The patient's anesthetic plan and its attendant risks and benefits were discussed with the patient/family/POA. Questions were solicited and answers provided to the satisfaction of the patient/family/POA.
--- NOTE | 2024-09-10 10:59 | SUR.PREOP ---
Freestyle glucometer check is 165.
[2024-09-10] MEDS: LACTATED RINGERS 1,000 ML 150 ML IV CONT (11:00)
--- NOTE | 2024-09-10 11:09 | WPDHPUPDATE1 ---
History and Physical Update Update Date/Time: 09/10/24 11:09 History and Physical has been reviewed, including an updated exam of the patient. There are NO changes in the patient's condition. Risks, benefits, and alternatives have been discussed and questions answered. Patient agrees to proceed with procedure.
[2024-09-10] MEDS: INDOMETHACIN 50 MG SUPP.RECT RECTAL (11:25)
--- NOTE | 2024-09-10 12:48 | SUR.PHASEII ---
Blood glucose 201 via freestyle sensor
== END 2024-09-10 13:32 | disposition home or self-care (01) ==
PROVIDERS: PCP Family Medicine; Referring Provider Nurse Practitioner Family; Visit Provider Internal Medicine Gastroenterology
PROC: (CPT 43260; principal; 2024-09-10 13:45)
DX: K80.50 Calculus of bile duct without cholangitis or cholecystitis without obstruction (principal); E11.9 Type 2 diabetes mellitus without complications; J44.9 Chronic obstructive pulmonary disease, unspecified; F41.9 Anxiety disorder, unspecified; Z87.891 Personal history of nicotine dependence
CPT/HCPCS: 43262; 43264; 74329; A9270; J0330; J2704; J7120; Q9966